=== PATIENT | female | born 1965 | race Caucasian/White ===

== ENCOUNTER 2024-04-13 15:06 | Inpatient (IN) | payer OTHER, SELFPAY ==
[2024-04-13] VITALS (13 sets, daily range): BP systolic 100–146; BP diastolic 62–95; BMI 26.6
--- NOTE | 2024-04-13 12:12 | ED.GENMED ---
History of Present Illness
General
Chief Complaint: Cardiac Symptoms
Source: patient
Time Seen by Provider: 04/13/24 12:09
History of Present Illness
History of Present Illness:
58-year-old female presents to the emergency room via ambulance due to feeling dizzy and like she might pass out. Patient was at work and had gone to the bathroom. While in the bathroom she can feel lightheaded, palpitation and dizzy and a
sensation like she was going to pass out. Patient endorses 'partying' over the weekend and thought she was dehydrated. She left the bathroom and coworkers noted that she did not look well. She again had a feeling that she might pass out. 911 was
called. Upon arrival medics state that the patient was in sinus tachycardia. They began to transport her to the hospital and during transport she was noted to develop a wide-complex tachycardic rhythm. They interpret this is ventricular
tachycardia. They did not have IV access. After a brief attempted Marisabel maneuvers the patient was synchronously cardioverted with 100 J. She reverted to sinus tachycardia. Patient states that she takes no medication. She endorses daily alcohol
use. She estimates that she drinks 3 seltzers a day. She drinks much more than this over the weekend. Last drink was about 9 PM last night. She endorses mild marijuana use but denies any other drug use. Patient did not have any chest pain per
se.
Phy Exam
Physical Exam
Physical Exam:
General: Awake, Alert, Oriented X3. Anxious but no acute distress.
Vitals: Mild tachycardia
Head: Atraumatic
Eyes: Pupils equal, EOMI
Throat: Airway intact, no exudates
Neck: Trachea midline
Lungs: Clear and equal b/l
Heart: Regular rate, no murmurs
Abd: Soft, Nontender, No pulsatile mass
Neuro: Nonfocal
Skin: Warm, dry, no rash
Extremities: pulses equal b/l, no edema
Course
Orders/Labs/Results
Orders:
Orders
04/13/24 12:00
Electrocardiogram (*1) Urgent
Reason for Study: Chest Pain
Cardiac Monitoring- Treatment ONCE
EKG- Treatment ONCE
IV Insert/Care/Rem.- Treatment PRN
O2 Therapy [RESP] Urgent
Titrate/Wean O2 to maintain O2 sat greater than (%): 90
Special Instructions: Maintain sats >/=90%
Pulse Ox/spot Check [RESP] Urgent
Quantity: 1
Special Instructions: ON ROOM AIR
04/13/24 12:09
Complete Blood Count/With Diff Urgent
Comprehensive Metabolic Panel Urgent
Magnesium Urgent
Phos [Phosphorus] Urgent
Prothrombin Time Urgent
Troponin I Urgent
04/13/24 12:10
Free T4 Urgent
TSH Reflex To Free T4 Urgent
04/13/24 12:16
0.9% Sodium Chloride 500 ml [Nss] 500 ml IV BOLUS
04/13/24 12:17
Thiamine Injection 200 mg IV NOW STA
04/13/24 12:24
Amiodarone [Cordarone] 150 mg Dextrose 5%/Water 100 ml [D5w] 100 ml IV NOW
04/13/24 12:25
Magnesium Sulfate 4 Gram/100Ml [Magnesium Sulfate] 4 gram in 100 ml IV NOW
04/13/24 12:31
Electrocardiogram (*1) Urgent
Reason for Study: Palpitations
EKG- Treatment ONCE
04/13/24 13:04
Add On- LAB Urgent
Tests Added?: ALCOHOL
04/13/24 13:10
Echo 2D MMode Color/Doppler Stat
Reason for Study: vt
04/13/24 14:18
Drug Screen, Urine [Urine Drug Abuse Screen] Urgent
Date Specimen was Collected: 04/13/24
Time Specimen was Collected: 13:35
04/13/24 14:20
Portable Chest Xray [CR Chest Portable - 1 View] Urgent
Comment:
Reason For Exam: cp
Reason Study Needs to be Portable: Patient Unstable
Abnormal Lab Results
04/13/24 04/13/24
12:09 12:10
MCH 31.2 H pg
(27.0-31.0)
Carbon Dioxide 21 L mmol/L
(22-30)
Glucose 128 H mg/dl
(70-99)
AST 58 H U/L
(14-36)
TSH (Reflex) < 0.02 L uIU/ml
(0.47-4.68)
04/13/24 12:09
04/13/24 12:09
Vital Signs
Initial and Last Documented VS:
Initial Vital Signs
BP
146/81
04/13/24 12:08
Last Documented Vital Signs
Temp Pulse Resp BP Pulse Ox
97.8 F 96 14 137/91 99
04/13/24 12:14 04/13/24 14:15 04/13/24 14:15 04/13/24 14:01 04/13/24 14:01
MDM/Problems Addressed
Differential Diagnosis Includes:
Ventricular tachycardia due to ischemia, electrolyte abnormality, cardiomyopathy.
MDM/Problems Addressed:
Patient had an episode of ventricular tachycardia which converted after synchronized cardioversion prehospital setting. She had multifocal PVCs on the monitor initially. She was given 4 g of magnesium given her alcohol use disorder and binging
this weekend. Also received a bolus of amiodarone 150 mg. Patient seems to have less ectopy after these interventions. Patient evaluated by cardiology. She will be admitted to the hospitalist service and cardiology perform an extensive workup to
identify the source of the dysrhythmia. However at this point they are recommending a ICD prior to discharge.
*Pulse Oximetry
Patient hypoxic: no
*EKG
Interpreted by ED Provider?: Yes
Interpretation: abnormal
Heart Rate: 110
Rate: tachycardiac
Rhythm: sinus and PVC's
[place]: normal axis
Interval: normal interval
QRS Pattern: normal QRS
Ischemia: non-specific ST changes
*Employment Interviewer Interpretation
Rate: tachycardiac
Interpretation: abnormal
Heart Rate: 110
Rhythm: sinus tachycardia
*Critical Care Note
Total Time (30-74mins, 75-104mins- exclusive of procedures): 32 min
comment:
Critical care statement: A total of 32 minutes of critical care time was provided for this patient. This includes management of unstable vital signs, evaluation of the patient at bedside, reviewing the patient's pertinent medical records, discussion
with consultants, review of old EKGs and review of pertinent medical records. This time with separate from time utilized to perform the aforementioned documented procedures
ED Attending Note
-
Portions of this chart may have been created with voice recognition software.� Occasional wrong word or��sound alike� substitutions may have occurred due to the inherent limitations of voice recognition software.
Discharge Plan
Departure
Patient Disposition: Admit
Date of Disposition: 04/13/24
Time of Disposition: 13:19
Admit to: IVU
Presentation/result/management discussed w/ accepting MD/DO: Hospitalist
Condition: Serious
Discharge Problem:
Ventricular tachycardia
Prescriptions:
No Action
Theragen Tablet
1 tab PO DAILY
aspirin 81 mg Tablet,Delayed Release (Dr/Ec)
81 mg PO DAILY
Interventions
Interventions:
*Risk Screen - Suicide Last Done: 04/13/24 12:16
*General Assessment Last Done: 04/13/24 12:16
*Neglect/Abuse Screening Last Done: 04/13/24 12:16
*ED COVID-19 Vaccine History Last Done: 04/13/24 12:16
ED- Pulmonary Assessment Last Done: 04/13/24 12:16
ED- Cardiac Assessment Last Done: 04/13/24 12:16
Discharge Date and Time
Print Language: EAST TIMOR[place]
[2024-04-13 12:29] LABS: % Basophils 0.6 % (0-2); % Immature Granulocytes 0.3 % (0-0.5); % Lymphocytes 26.9 % (20.5-51.1); % Monocytes 4.5 % (1.7-9.3); % Neutrophils 65.7 % (42.2-75.2); Absolute Eosinophils 0.1 10^3/uL (0-0.7); Absolute Lymphocytes 1.8 10^3/uL (1.2-3.4); Absolute Monocytes 0.3 10^3/uL (0.1-0.6); Absolute Neutrophils 4.5 10^3/uL (1.4-6.5); Hematocrit 44.4 % (37.0-47.0); Mean Corp Hgb Conc. 33.8 g/dL (33.0-37.0); Mean Corpuscular Hgb 31.2 pg (27.0-31.0); Mean Corpuscular Volume 92.3 fL (81.0-99.0); Mean Platelet Volume 10.4 fL (7.4-10.4); Nucleated Red Blood Cells % 0 %; Platelet Count 337 10^3/uL (130-400); Red Blood Cell Count 4.81 10^6/uL (4.20-5.40); Red Cell Dist. Width 12.2 % (11.5-14.5); White Blood Cell Count 6.8 10^3/uL (4.8-10.8)
[2024-04-13] MEDS: THIAMINE INJECTION 200 MG IV (12:37)
[2024-04-13] MEDS: NSS 500 IV (12:37)
[2024-04-13 12:43] LABS: ALT (SGPT) 32 U/L (0-35); AST (SGOT) 58 U/L (14-36); Albumin 4.7 g/dl (3.5-5.0); Alkaline Phosphatase 106 U/L (38-126); Blood Urea Nitrogen 14 mg/dl (7-17); Calcium 10.1 mg/dl (8.4-10.2); Carbon Dioxide 21 mmol/L (22-30); Chloride 103 mmol/L (98-107); Estimated Creatinine Clearance 67 ml/min; Glucose 128 mg/dl (70-99); Magnesium 1.8 mg/dl (1.6-2.3); Phosphorus 2.8 mg/dl (2.5-4.5); Potassium 4.3 mmol/L (3.5-5.1); Sodium 142 mmol/L (135-145); Total Bilirubin 0.7 mg/dl (0.2-1.3); Total Protein 7.2 g/dl (6.3-8.2); eGFR > 60.00
[2024-04-13] MEDS: MAGNESIUM SULFATE 100 IV (12:45)
[2024-04-13] MEDS: CORDARONE 103 MG IV (12:49)
[2024-04-13 12:53] LABS: INR 0.97; PT 12.9 Sec (11.4-14.6)
[2024-04-13 13:14] LABS: TSH Reflex To Free T4 < 0.02 uIU/ml (0.47-4.68)
--- NOTE | 2024-04-13 13:14 | CON.CAR ---
Consultation
Consultation Request
Date/Time Consultation Requested: 04/13/24 1230
Date/Time Consultation Performed: 04/13/2024 at 1255
Requesting Provider: Dr. Rosales
Performing Provider: Dr. Patsy Rees
Reason for Consultation: Ventricular tachycardia
Medical History
-
Chief Complaint: Dizziness
History of Present Illness:
Patient is a 58-year-old woman accompanied by her fianc� and sister. She tells me she was under stress at work and not feeling well and went into the bathroom and felt dizzy. She was going to have a bowel movement. When she came out she was
feeling poorly 911 was called. According to communication in the ambulance she started feeling poorly and was in rapid ventricular tachycardia heart rate around 250 bpm and she was cardioverted at that time. First EKG with sinus rhythm multiform
PVCs and inferior infarct age undetermined but appears old. Second EKG with sinus rhythm single PVC and inferior infarct age undetermined but appears.
Patient tells me she had mitral valve repair for mitral valve prolapse and mitral regurgitation about a year ago at [facility] with Dr. Wheeler. 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
well since open heart surgery. She tells me she has no history of arrhythmias. She does not think she has coronary disease. She is not sure if initial cardiac catheterization was at [facility], [facility] or [facility]
Amirah's.
She denies chest pain and syncope. She has not felt like this before. Currently she is anxious and nervous after everything that happened. She has been taking only a multivitamin and aspirin at home. She denies other medical issues
She drinks 5 alcoholic beverages daily but drink more this weekend. She has a history of tobacco use and that she went to vaping and now is using Nicorette gum.
CBC is stable. Potassium is stable. Magnesium is stable. Troponin is pending. Blood pressure is stable. Amiodarone drip has been ordered.
Past Medical History
Past Medical History: Arrhythmias (Ventricular tachycardia), Valvular Disease (History of mitral valve repair about a year ago at [facility]) and Other (Alcohol use disorder, history of tobacco use not using the correct)
Past Surgical History: Appendectomy, Cardiac (Mitral valve repair) and Orthopedic (Arthroscopic knee surgery)
Social History
Tobacco: Former Smoker
Alcohol: Chronic Alcoholic (5 alcoholic beverages daily)
Personal: Single
Employment: Employed
Family History
Family History: CAD (Father with heart failure and atrial fibrillation) and Other (Mother with dementia)
Allergies / Home Medications
Allergy/AdvReac Type Severity Reaction Status Date / Time
No Known Allergies Allergy Unverified 04/13/24 12:13
Review of Systems
-
History Source: Patient
All other systems: Negative unless noted
Cardiac: Palpitations and Other (Near syncope)
Physical Exam
Vital Signs
Temp Pulse Resp BP Pulse Ox
97.8 F 104 22 146/81 96
04/13/24 12:14 04/13/24 13:00 04/13/24 13:00 04/13/24 12:14 04/13/24 13:02
Lab Results
04/13/24 12:09
04/13/24 12:09
General: Well developed, well nourished in NAD.
Heart: Distant heart sounds defibrillator pads in place RRR, no murmurs, No S3, S4, no rubs.
Lungs: Coarse anterior breath sounds
Extremities: No clubbing, cyanosis or edema bilaterally.
Neuro: Grossly nonfocal, awake, alert and oriented x3.
Impression / Plan
-
Book Sorter Dr. Mckee ([place])
Cardiac surgeon Dr. Russell ([facility])
Impression:
Ventricular tachycardia/ventricular flutter status post shock by EMS
PVCs
Mitral valve repair [facility]
By report no coronary artery disease by catheterization (records not available)
Negative troponin x 1
Alcohol use disorder
Recent tobacco cessation using Nicorette gum
Abnormal EKG with Q waves inferiorly
Plan:
Patient was feeling dizzy and lightheaded with prior history of mitral valve repair approximately 1 year ago at [facility] no history of coronary artery disease by report. Patient in EMS had rapid ventricular tachycardia/ventricular
flutter at about 250 bpm and given hypotension and symptoms were shocked by EMS to sinus rhythm. EKG with multiform PVCs. No further arrhythmias. Received amiodarone. Receiving magnesium. Troponin negative. Electrolytes without abnormality.
Alcohol use disorder noted.
Plan at this time:
-Obtain records
-Echocardiogram
-Will likely need cardiac catheterization to exclude coronary artery disease atherosclerotic or mechanical
-Will need defibrillator this hospital stay
-Defer to primary service alcohol use disorder and tobacco use disorder
Have discussed with patient and her family at the bedside. At this time I explained to them that she had a dangerous rhythm and we were awaiting echocardiogram. Did not make plans yet with patient and her family for cardiac catheterization or
defibrillator. Await records first and echocardiogram results.
Data Reviewed
-
EKG: Tracing Personally Visualized and interpreted
Medical Tests (Nuc Med, Echo etc): Report Reviewed by me
Labs: Labs Reviewed by me
Old Records: Requested
[2024-04-13 13:26] LABS: Troponin I < 0.012 ng/ml
[2024-04-13 13:44] LABS: Free T4 1.62 ng/dl (0.78-2.19)
[2024-04-13 14:49] LABS: Amphetamines Negative (Negative); Barbiturates Negative (Negative); Benzodiazepines Negative (Negative); Buprenorphine Negative (Negative); Cocaine Negative (Negative); Marijuana Negative (Negative); Methadone Negative (Negative); Methamphetamines Negative (Negative); Opiates Negative (Negative); Phencyclidine Negative (Negative); Tricyclic Antidepressants Negative (Negative)
[2024-04-13] MEDS: ASPIRIN 325 MG PO (15:06)
[2024-04-13] MEDS: HEPARIN 25000 UNITS/250 ML IV (15:11)
[2024-04-13] MEDS: HEPARIN 3900 UNITS IV (15:18)
[2024-04-13 15:20] LABS: APTT 27.9 Sec (23.4-35.0)
[2024-04-13 15:39] LABS: Alcohol None Detected
--- NOTE | 2024-04-13 15:39 | W.PN.UPDATE ---
Update Note
Progress Note Update
records obtained and reviewed from primary operator command support systems, Dr. Mckee including last office visit 12/24/23, last echo 07/02/23 EF 55 to 60%, annuloplasty ring in mitral position with trace MR and mean gradient 2 mmHg
--- NOTE | 2024-04-13 15:57 | HPS.HSE ---
Addendum entered and electronically signed by Crispin Turcios MD 04/13/24 18:24:
I personally performed a history and physical exam of the patient and discussed management with the resident. I reviewed the resident's note and agree with the documented findings and plan of care HPI/CC.
58-year-old female with past medical history of surgical mitral repair, alcohol use came from work after having dizziness episode. Patient was in bathroom having bowel movement when started feeling dizzy. Patient was having some discomfort in the
left arm as well. No associated nausea/shortness of breath. Patient was concerned about worsening heart issue and called EMS. In ambulance patient noted to having episode of V. tach/V-fib with heart rate going up to 250. Patient did not lose
consciousness and patient was shocked x1 with patient reverted to NSR. Patient somewhat traumatized with this whole ordeal and quite anxious. Patient was evaluated by cardiology and was started on amiodarone drip. An echocardiogram was done which
showed possible inferior wall motion defect. On EKG there is corresponding Q wave on inferior leads as well. Patient was loaded with full dose aspirin and started on heparin drip. At this point patient is being transferred to [employer] [facility] for an
emergent ischemic evaluation. Patient denies of any active ongoing chest pain/shortness of breath/nausea.
HEENT: No pallor, cyanosis, or jaundice. Throat clear.
NECK: Supple. No JVD.
RESPIRATORY: Lungs clear to auscultation.
CVS: S1, S2 normal. RRR. No murmur, rub or gallop.
ABDOMEN: Soft, non-tender. No distension. BS+/normal.
EXTREMITIES: No peripheral cyanosis or edema.
L[employer] WORKER HELPER: AOx3. No focal deficits.
Episode of VT/Vfib
Presumed NSTEMI
-got x1 defibrillator shock by EMS
-Patient started on amiodarone drip
-No previous history of obstructive CAD/ventricular arrhythmia
-Electrolyte magnesium/potassium within normal limit. Patient was given empiric Mag 4g infusion.
-Emergent echocardiogram in ER showing inferior wall motion defect. Preserved EF no problem with mitral valve repair
-Patient being loaded with aspirin 325 mg and being started on heparin drip
-Cardio logic planning to take patient to heart cath immediately
-Patient will require eventual EP study and/ICD placement
Mitral valve repair
-No abnormality on echocardiogram
-Further records being requested from primary cardiology
DVT PPX - heparin drip
Full code
Total time spent : 77 mins
I personally saw and examined the patient.
I have reviewed all diagnostic interpretations and treatment plans as written.
Time includes patient management by me, time spent at the patients bedside, time to review lab and imaging results, discussing patient care, documentation in the medical record, and time spent with the family or caregiver and discussing care plan
with RN/Consultants.
Full code
Original Note:
Family Physician
-
Family Physician: Virginia Villanueva
Chief Complaint
-
Ventricular tachycardia
History of Present Illness
58-year-old female with past medical history of mitral valve repair, presents from work. Patient states that she was having a bowel movement at work during which she begun to feel funny, she began sweating, feeling lightheadedness and dizzy. She
also endorses that her arm felt 'weird' and he cannot elaborate further. Patient denies nausea vomiting chest pain shortness of breath. Patient does endorse that this episode was scary. The symptoms persisted for approximately 30 minutes.
Patient was picked up at work by EMS. During route to the hospital it was noted the patient had a bout of ventricular tachycardia on rhythm strip, around 250 bpm. Patient blood pressure dropped into the 90s, she was awake and speaking. EMS then
defibrillated the patient while awake. Patient states that this is never happened before and she is currently very anxious and afraid. The only medication patient takes at home is a multivitamin and aspirin. She denies all other medical issues.
Patient is an alcoholic, she drinks approximately 5 alcoholic beverages per day however when she did drink more this weekend. Cardiology was consulted in the ED, gave recommendations and is planning to take patient for a cardiac catheterization
later today. Patient will be admitted to the IVU for further telemetry and workup.
Medical History
Past Medical History
Past Medical History: Reports Valvular Disease (History of mitral valve repair)
Past Surgical History: Reports Other
Additional Past Surgical History:
Appendectomy, mitral valve repair, left knee replacement
Social History
Tobacco: Former Smoker (Quit about 10 years ago, approximately 74-[id number] history.)
Alcohol: Daily (Patient drinks approximately 5 drinks per day, drink more this weekend)
Drug: Marijuana (Patient reports occasional marijuana use)
Personal:
Living: With Family
Employment: Employed
Family History
Family History: Not pertinent
Allergies / Home Medications
Allergies reflects when Allergies were last updated in [employer].
Home Medications with original date entered in [employer]
Allergy/Medication List:
Allergies
Allergy/AdvReac Type Severity Reaction Status Date / Time
No Known Allergies Allergy Unverified 04/13/24 12:13
Home Medications
aspirin 81 mg tablet,delayed release 81 mg PO DAILY 04/13/24
therapeutic multivitamin 1 tab PO DAILY 04/13/24
Review of Systems
-
A 12 point ROS was completed and negative except as noted: Yes
Constitutional: Reports No Symptoms
EENT: Reports No Symptoms
Respiratory: Reports No Symptoms; Denies Trouble Breathing
Cardiac: Reports Diaphoresis; Denies Chest Pain
Abdomen/GI: Denies Nausea
: Reports No Symptoms
Musculoskeletal: Reports No Symptoms
Neurological: Reports Dizzy (Dizziness and lightheadedness) and Other (Patient reports left arm feeling 'weird ')
Physical Exam
Vital Signs
Vital Signs
Temp Pulse Resp BP Pulse Ox
97.8 F 92 17 133/95 98
04/13/24 12:14 04/13/24 15:45 04/13/24 15:45 04/13/24 15:00 04/13/24 15:45
Physical Exam
General: Well Developed and Conversant
Respiratory: Clear
Cardiac: S1/S2 and Regular Rhythm
GI: Soft, Non Tender, Non Distended and Normal Bowel Sounds
Musculoskeletal: No Edema
Skin: Warm and Dry
Neuro: Awake, Alert, Oriented and AO x 3
Psych: Intact Judgment/Insight
Laboratory Results
-
04/13/24 12:09
04/13/24 12:09
Laboratory Results
PT 12.9 Sec (11.4-14.6) 04/13/24 12:09
INR 0.97 04/13/24 12:09
APTT 27.9 Sec (23.4-35.0) 04/13/24 12:09
Total Bilirubin 0.7 mg/dl (0.2-1.3) 04/13/24 12:09
AST 58 U/L (14-36) H 04/13/24 12:09
ALT 32 U/L (0-35) 04/13/24 12:09
Alkaline Phosphatase 106 U/L (38-126) 04/13/24 12:09
Troponin I < 0.012 ng/ml 04/13/24 12:09
Data Reviewed
-
Diagnostic Radiology: Report Reviewed by me and Discussed with Physician
Lab Data: Labs Reviewed by me and Discussed with Physician
Impression/Plan
-
IMPRESSION:
58-year-old female with a bout of ventricular tachycardia requiring defibrillation
PLAN:
#Presyncope
Etiology of presyncope currently unknown, it is presumed cardiac in nature
Cardiology saw and evaluated the patient in the emergency department,
EKG in emergency department demonstrates sinus rhythm with possible small Q waves in the inferior leads
Status post echocardiogram
Echocardiogram demonstrated inferior wall motion abnormality
Planning cardiac catheterization later tonight
Patient started on loading dose of heparin, as well as drip
325 mg aspirin given in the ED
Check electrolytes, magnesium and potassium in the morning
Trend troponins every 4 hours
Admit to IVU and place on telemetry
#Ventricular tachycardia
Patient had 1 recorded episode of ventricular tachycardia by EMS, 250 bpm, systolics in the 90s
Patient required defibrillation in ambulance en route to the emergency department
Patient currently wearing a transcutaneous pacer device
Will admit and monitor on telemetry in the IVU
Check electrolytes in the a.m.
Monitor with daily CMP
#Alcohol use disorder
Patient reports drinking 5 drinks per day, more this weekend
Patient will be placed on alcohol withdrawal protocol
IV thiamine and folate repletion
Check magnesium and phosphorus
#Mitral valve repair
Patient has a history of mitral valve repair at [place]
Check echocardiogram
Diet: N.p.o.
CODE STATUS: Full code
DVT prophylaxis: Heparin drip
--- NOTE | 2024-04-13 16:24 | ITS.CL.CATH ---
Addendum entered and electronically signed by Jeniffer Cali MD 04/14/24 09:20:
ADDENDUM:
CIRCUMFLEX: The left circumflex artery is a small to medium caliber vessel which gives rise to 2 very small OM's and a third major obtuse marginal branch. 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
occlusion with robust right to left collaterals however the vessel is too small in caliber and not a PCI target.
Jeniffer Cali MD, [facility], [facility]
Original Note:
Trench Pipe Layer Helper - Catheterization
Cardiac Catheterization
Procedure Report:
LEFT HEART CATHETERIZATION
Date of Procedure: April 13, 2024
Referring: Patsy Rees
PROCEDURES:
1. Left heart catheterization, coronary angiogram.
2. Ultrasound-guided access
INDICATION: Ventricular tachycardia
ACCESS: Right radial artery, 6 Palestinian sheath, under ultrasound guidance
HEMODYNAMICS : (mmHg)
AO (s/d) : 137/92
LV (s/d) : 130/6
LVEDP : 11
CORONARY FINDINGS
DOMINANCE: Right
LEFT MAIN: The left main artery is a large-caliber vessel which gives rise to the left anterior descending artery and the left circumflex artery. Normal coronary artery.
LEFT ANTERIOR DESCENDING: The left anterior descending artery is a medium caliber vessel which gives rise to 2 major diagonal branches as it courses to the anterior interventricular groove towards the apex. There is minimal luminal irregularities.
CIRCUMFLEX: The left circumflex artery is a small to medium caliber vessel which gives rise to 2 very small OM's and a third major obtuse marginal branch. Mid left circumflex artery, which is small in caliber, appears to have a sub-total occlusion
with robust right to left collaterals however the vessel is too small in caliber and not a PCI target.
RIGHT CORONARY ARTERY: The right coronary artery is a large-caliber, dominant vessel which gives rise to the right posterior descending artery and the right posterolateral system. There is minimal luminal irregularities. Collaterals are noted to
the [place] left circumflex artery.
SEDATION: 23 minutes of procedural sedation was utilized. An independent medical terminologist was present to assist with and help manage the patient's level of consciousness and physiologic status.
RADIATION SUMMARY: Fluoro Time (min): 1.9, Dose (mGy): 127.9, DAP (Gy.cm2) : 11.55
Closure Device: Vascular band over right radial artery, 10 cc of air.
CONCLUSIONS
1. Mid left circumflex artery, which is small in caliber, appears to have a sub-total occlusion with robust right to left collaterals however the vessel is too small in caliber and not a PCI target.
2. Normal LVEDP at 11 mmHg.
RECOMMENDATIONS
1. Medical management of ischemic cardiomyopathy and ventricular tachycardia.
2. Wean radial band per protocol.
Copy to: Patsy Rees
Jeniffer Cali MD, FACC, [facility]
--- NOTE | 2024-04-13 17:41 | PTCARENOTE ---
Rec'd report from Federico in the production laborer; Rec'd pt AAOx3 w/no c/o CP or SOB. Pt w/R radial band in place w/no signs or symptoms of bleeding or hematoma. Pt's VS stable w/HR in the 80's & SR on telemetry monitoring. Discussed activity restrictions post
cath & pt verbalized understanding. Pt w/call suh within reach & plan of care ongoing.
--- NOTE | 2024-04-13 20:00 | PTCARENOTE ---
Removed 3ml through TR band, cath site began to ooze, 3ml reintroduced to band. pox 98% on RA. +cms. Pt denies numbness. Ed -CV-PA notified.
2144 TR band removed by PA. Pressure applied.
[2024-04-13] MEDS: COREG 3.125 MG PO (20:09)
[2024-04-13] MEDS: LIPITOR 40 MG PO (20:10)
--- NOTE | 2024-04-13 23:30 | W.PN.UPDATE ---
Update Note
Progress Note Update
Cardiology Update Note:
-Called by nurse to assess pt's right radial artery site following cardiac Cath
-TR band applied with patient c/o paresthesia of right hand
-Removed TR band and applied manual pressure x 30 minutes without achievement of hemostasis, pt noted to be oozing
-TR band reinflated over gauze for additional 30 min before achievement of hemostasis
-Pressure dressing applied and can be removed in the AM
[2024-04-13 23:55] LABS: GGTP 25 U/L (12-43)
[2024-04-14] VITALS (7 sets, daily range): BP systolic 91–118; BP diastolic 61–84
[2024-04-14 02:30] LABS: B-Hydroxybutyrate 0.97 mmol/L (0.02-0.27)
--- NOTE | 2024-04-14 05:38 | PTCARENOTE ---
R radial pressure dressing removed as directed by PA. Cath site c/d/i, no oozing. gauz and tegaderm applied. no issues.
[2024-04-14 06:19] LABS: HDL Cholesterol 109 mg/dl; LDL Cholesterol, Calculated 94 mg/dl; Total Cholesterol 216 mg/dl (50-199); Triglyceride 66 mg/dl (10-149); Very Low Density Lipoprotein 13 mg/dl (0-30)
[2024-04-14] MEDS: ASPIR LOW (ENTERIC COATED) 81 MG PO (08:16)
[2024-04-14] MEDS: FOLVITE 1 MG PO (08:17)
[2024-04-14] MEDS: COREG 3.125 MG PO ×2 (08:17→20:02)
--- NOTE | 2024-04-14 09:03 | W.PN.HOSP.TC ---
Addendum entered and electronically signed by Crispin Turcios MD 04/14/24 14:59:
I saw and evaluated the patient. I reviewed the resident�s note and agree with findings and plan as documented in the resident�s note.
Patient had some bleeding issue from right radial catheter access site. No pain/discomfort on exam no swelling.
Episode of VT/Vfib
-got x1 defibrillator shock by EMS
-Patient started on amiodarone drip
-No previous history of obstructive CAD/ventricular arrhythmia
-Electrolyte magnesium/potassium within normal limit. Patient was given empiric Mag 4g infusion.
-Patient will get ICU placement for persistent
Ischemic cardiomyopathy
Circumflex artery occlusion
-Emergent echocardiogram in ER showing inferior wall motion defect. Preserved EF no problem with mitral valve repair
-Left heart catheterization showing subtotal occlusion of circumflex artery. Not amenable to stenting.
-Intervention cardiology recommended medical management.
-Currently on aspirin/statin/Coreg. Cardio will look into SGLT2 inhibitor affordability.
Mitral valve repair
-No abnormality on echocardiogram
-Further records being requested from primary cardiology
DVT PPX - heparin drip
Full code
Care plan discussed with interventional cardiology
Total time spent : 53 mins
I personally saw and examined the patient.
I have reviewed all diagnostic interpretations and treatment plans as written.
Time includes patient management by me, time spent at the patients bedside, time to review lab and imaging results, discussing patient care, documentation in the medical record, and time spent with the family or caregiver and discussing care plan
with RN/Consultants.
Original Note:
Today's Communication/Plan
-
Tentatively planning for defibrillator implantation
Make patient n.p.o. once defibrillator implantation time has been set
Assessment / Plan
Assessment / Plan
IMPRESSION:
58-year-old female with a bout of ventricular tachycardia requiring defibrillation
PLAN:
#Presyncope
Etiology of presyncope currently unknown, it is presumed cardiac in nature
Cardiology saw and evaluated the patient in the emergency department,
EKG in emergency department demonstrates sinus rhythm with possible small Q waves in the inferior leads
Status post echocardiogram
Echocardiogram demonstrated inferior wall motion abnormality
Status post cardiac catheterization, no PCI target was found
Continue patient on heparin drip
Continue aspirin 81 mg
Cardiology planning to take patient for implantable cardiac defibrillator
Will make patient n.p.o. once definitive time has been set
IVU and telemetry
#Ventricular tachycardia
Patient had 1 recorded episode of ventricular tachycardia by EMS, 250 bpm, systolics in the 90s
Patient required defibrillation in ambulance en route to the emergency department
Patient currently wearing a transcutaneous pacer device
Continue to monitor on telemetry in the IVU
Monitor with daily CMP
#Alcohol use disorder
Patient reports drinking 5 drinks per day, more this weekend
Patient will be placed on alcohol withdrawal protocol
IV thiamine and folate repletion
Check magnesium and phosphorus
#Mitral valve repair
Patient has a history of mitral valve repair at [facility]
Check echocardiogram
Diet: Cholesterol-lowering
CODE STATUS: Full code
DVT prophylaxis: Heparin drip
Anticipated Discharge: Within 24 hours
Subjective/Interval History
-
Date of Service: April 14, 2024
Patient had an episode of paresthesias and ooziness of her right radial artery catheter site. This was resolved after 30 minutes of pressure
Site looks well today, skin warm no signs of compression.
Objective Data
-
Labs:
Laboratory Results
04/13/24 04/14/24
14:41 16:22
WBC Pending
Hgb Pending
Hct Pending
Plt Count Pending
APTT Cancelled
Sodium Pending
Potassium Pending
Chloride Pending
Carbon Dioxide Pending
BUN Pending
Creatinine Pending
Glucose Pending
Calcium Pending
Total Bilirubin Pending
AST Pending
ALT Pending
Alkaline Phosphatase Pending
Vital Signs:
Vital Signs
Temp Pulse Resp BP Pulse Ox
98.4 F 70 20 94/61 98
04/14/24 08:11 04/14/24 08:17 04/14/24 08:11 04/14/24 08:17 04/14/24 08:11
Review of Systems
-
History Source: Patient
Constitutional: Reports No Symptoms
Respiratory: Reports No Symptoms
Cardiac: Reports No Symptoms
Abdomen/GI: Reports No Symptoms
Physical Exam
-
General: Well Developed, Well Nourished and No Apparent Distress
--- NOTE | 2024-04-14 10:44 | W.PN.CARDCBS ---
Addendum entered and electronically signed by Jeniffer Cali MD 04/14/24 11:25:
I saw and examined the patient.
The Pipe Bending Machine Operator's note was reviewed and I agree with the note.
Comment: Overall patient did well overnight and does not report any major complaints. In the evening time as they were weaning of the radial band she had persistent bruising requiring prolonged pressure at the radial site and reapplication of the
vascular band which eventually helped achieve hemostasis. She has no complaints at the radial site this morning other than it being mildly sore.
.
Vital signs and lab work reviewed. Telemetry with frequent PVCs and multifocal ventricular ectopic beats. On exam patient is somewhat anxious, otherwise in no acute distress, alert and oriented x 3, regular rate, normal S1 and S2, no murmurs, rubs
or gallops, lungs are clear to auscultation bilaterally, abdomen is soft, nontender, nondistended with active bowel sounds, warm extremities without significant edema. On exam at the radial side there is no evidence of hematoma or bruit.
.
Recommendations:
1. Continue with goal-directed medical therapy optimization for ischemic cardiomyopathy. We will look into the cost for SGLT2 inhibitor otherwise she will continue on daily baby aspirin, statin and carvedilol.
2. Continue to monitor radial site and if she has persistent pain at the right radial site or any worsening, low threshold to check a vascular ultrasound to rule out any concerns for a pseudoaneurysm.
3. N.p.o. after midnight for ICD placement tomorrow for secondary prevention.
Discussed with patient and family at bedside. Also discussed with nursing.
Jeniffer Cali MD, [facility], [facility]
Original Note:
Today's Communication / Plan
-
continue asa, statin, coreg. will assess cost to patient of SGLT2 inhibitor
ICD in AM
follow radial site
Impression / Plan
-
Pumper Hand Dr. Mckee ([place])
Cardiac surgeon Dr. Russell ([facility])
Impression:
Ventricular tachycardia/ventricular flutter status with hypotension status post shock by EMS
Negative trop x1
Subtotal occlusion of small caliber circ by cath 04/13/24, medical mgmt
Ischemic Cardiomyopathy, EF 40% by echo 04/13/24
PVCs
Mitral valve repair [facility] 2022
Alcohol use disorder
Recent tobacco cessation using Nicorette gum
Abnormal EKG with Q waves inferiorly
Echo 07/02/23 at OSH: EF 55 to 60%, annuloplasty ring in mitral position with trace MR and mean gradient 2 mmHg
ECHO 04/13/24: EF 40%, basal inferior, basal inferoseptum, high lateral, inferolateral mid and basal lee are hypokinetic, status post mitral valve repair with peak/mean gradient 7/4 mmHg, trace MR, no AR, trace TR, PAP 20 to 25 mmHg
Plan:
-patient presented with lightheadedness, noted to be in VT/VF with hypotension and was shocked by EMS in field
-s/p cardiac cath 04/13 with subtotal occlusion of small caliber circ. plan for medical mgmt
-presumably arrhythmia scar based
-continue asa, coreg, statin
-noted to have oozing from radial site post TR band removal last night. improved with pressure and additional TR band time. good pulse on exam. will follow. if worsening pain or recurrent pain, will check US
-echo with EF 40%, new upon comparing prior echo report from OSH
-discussed with patient and family indication for ICD. plan for implant 04/15. NPO after midnight
-remains in SR with PVCs, 1 3-beat run NSVT on review of tele overnight
-not presently candidate for tricia/arb/arni/aldactone given hypotension. will have CM assess cost to patient of SGLT2 inhibitor.
-discussed etoh/tobacco cessation
-d/w nursing
PREADMIT DATA:
Patient was feeling dizzy and lightheaded with prior history of mitral valve repair approximately 1 year ago at [facility] no history of coronary artery disease by report. Patient in EMS had rapid ventricular tachycardia/ventricular
flutter at about 250 bpm and given hypotension and symptoms were shocked by EMS to sinus rhythm. EKG with multiform PVCs. No further arrhythmias. Received amiodarone. Receiving magnesium. Troponin negative. Electrolytes without abnormality.
Alcohol use disorder noted.
Progress Note - Pumper Hand
Subjective
Date of Service: April 14, 2024
denies CP, SOB, lightheadedness overnight. R radial site with soreness to palpation, oksana-incisional ecchymoses, good radial pulse.
Objective
Labs:
Labs
Hgb 15.0 g/dL (12.0-16.0) 04/13/24 12:09
Hct 44.4 % (37.0-47.0) 04/13/24 12:09
Plt Count 337 10^3/uL (130-400) 04/13/24 12:09
PT 12.9 Sec (11.4-14.6) 04/13/24 12:09
INR 0.97 04/13/24 12:09
APTT Cancelled 04/13/24 21:11
Sodium 142 mmol/L (135-145) 04/13/24 12:09
Potassium 4.3 mmol/L (3.5-5.1) 04/13/24 12:09
BUN 14 mg/dl (7-17) 04/13/24 12:09
Creatinine 0.8 mg/dL (0.6-1.0) 04/13/24 12:09
Glucose 128 mg/dl (70-99) H 04/13/24 12:09
Troponins
04/13/24 04/13/24 04/13/24
12:09 17:11 18:30
Troponin I < 0.012 Cancelled Cancelled
04/13/24 04/14/24 04/14/24
21:11 00:30 06:30
Troponin I Cancelled Cancelled Cancelled
04/14/24
12:30
Troponin I Cancelled
Vital Signs and I&O:
Vital Signs
Temp Pulse Resp BP Pulse Ox
98.4 F 74 20 94/61 98
04/14/24 08:11 04/14/24 10:30 04/14/24 08:11 04/14/24 08:17 04/14/24 08:11
Vital Signs
Temp Pulse Resp BP Pulse Ox
98.4 F 74 20 94/61 98
04/14/24 08:11 04/14/24 10:30 04/14/24 08:11 04/14/24 08:17 04/14/24 08:11
Physical Exam
Physical Exam
GEN: No distress, awake, alert, oriented x3
HEENT: supple, anicteric, mmm, eomi
LUNGS: CTA B/L, no wheezes/rales
CV: Reg, S1/S2, no murmur
ABD: soft, BS+, NT/ND
EXT: No cyanosis, clubbing, edema
NEURO: Gross non-focal
SKIN: Warm, pink, dry. No rash. R wrist site with tenderness to palpation, some oksana-incisional ecchymoses, good pulse
[2024-04-14 11:32] LABS: Glycohemoglobin (HgbA1c) 5.1 % (4.0-5.6)
--- NOTE | 2024-04-14 14:05 | CM ---
Chart reviewed. Patient is independent of ADLS, lives with her fiance and son in a 3 S[place], 14 LYDIA, 0 DME. Patients family at bedside, so I was unable to offer substance abuse counseling. I will follow up. Plan is for the patient to return home.
CM to follow
--- NOTE | 2024-04-14 16:49 | PTCARENOTE ---
lab work sent. Pt denies pain, denies sob. voiding without difficulty. NSR on monitor.
[2024-04-14 16:54] LABS: Hematocrit 43.6 % (37.0-47.0); Hemoglobin 14.8 g/dL (12.0-16.0); Mean Corp Hgb Conc. 33.9 g/dL (33.0-37.0); Mean Corpuscular Hgb 31.8 pg (27.0-31.0); Mean Corpuscular Volume 93.8 fL (81.0-99.0); Mean Platelet Volume 10.2 fL (7.4-10.4); Platelet Count 325 10^3/uL (130-400); Red Blood Cell Count 4.65 10^6/uL (4.20-5.40); Red Cell Dist. Width 12.4 % (11.5-14.5); White Blood Cell Count 7.3 10^3/uL (4.8-10.8)
[2024-04-14 17:13] LABS: ALT (SGPT) 28 U/L (0-35); AST (SGOT) 39 U/L (14-36); Albumin 4.5 g/dl (3.5-5.0); Alkaline Phosphatase 79 U/L (38-126); Blood Urea Nitrogen 18 mg/dl (7-17); Calcium 10.2 mg/dl (8.4-10.2); Carbon Dioxide 27 mmol/L (22-30); Estimated Creatinine Clearance 59 ml/min; Glucose 91 mg/dl (70-99); Total Bilirubin 0.5 mg/dl (0.2-1.3); Total Protein 7.1 g/dl (6.3-8.2); eGFR > 60.00
[2024-04-14 17:29] LABS: Chloride 102 mmol/L (98-107); Potassium 4.8 mmol/L (3.5-5.1); Sodium 141 mmol/L (135-145)
[2024-04-14] MEDS: LIPITOR 40 MG PO (18:10)
[2024-04-15] VITALS (8 sets, daily range): BP systolic 88–113; BP diastolic 57–83
--- NOTE | 2024-04-15 04:34 | PTCARENOTE ---
Pt NPO for ICD placement. CHG performed. NSR on monitor, VSS. Pt denies any pain or discomfort.
--- NOTE | 2024-04-15 08:40 | W.PN.HOSP.TC ---
Addendum entered and electronically signed by Crispin Turcios MD 04/15/24 16:21:
Alcohol abuse without dependance
Addendum entered and electronically signed by Crispin Turcios MD 04/15/24 16:18:
I saw and evaluated the patient. I reviewed the resident�s note and agree with findings and plan as documented in the resident�s note.
Episode of VT/Vfib
-got x1 defibrillator shock by EMS
-Patient started on amiodarone drip
-No previous history of obstructive CAD/ventricular arrhythmia
-Electrolyte magnesium/potassium within normal limit. Patient was given empiric Mag 4g infusion.
-Getting ICD placement today
Ischemic cardiomyopathy
Circumflex artery occlusion
-Emergent echocardiogram in ER showing inferior wall motion defect. Preserved EF no problem with mitral valve repair
-Left heart catheterization showing subtotal occlusion of circumflex artery. Not amenable to stenting.
-Intervention cardiology recommended medical management.
-Currently on aspirin/statin/Coreg. Cardio will look into SGLT2 inhibitor affordability.
Mitral valve repair
-No abnormality on echocardiogram
-Further records being requested from primary cardiology
Alcohol use disorder
-MSAS remains 0
-no Ativan needed, discontinuing further
DVT PPX - scd
Full code
Original Note:
Today's Communication/Plan
-
Implantable cardiac defibrillator placement, keep patient n.p.o. until procedure
Assessment / Plan
Assessment / Plan
IMPRESSION:
58-year-old female with a bout of ventricular tachycardia requiring defibrillation
PLAN:
#Presyncope
#Ischemic cardiomyopathy
Etiology of presyncope unknown, it is presumed secondary to ischemic cardiomyopathy
Patient has history of mitral valve repair at [facility] 2022
Cardiology saw and evaluated the patient in the emergency department,
EKG in emergency department demonstrates sinus rhythm with possible small Q waves in the inferior leads
Status post echocardiogram demonstrating EF 40%
Echocardiogram demonstrated inferior wall motion abnormality
Status post cardiac catheterization, no PCI target was found
Continue patient on heparin drip
Continue GDMT with aspirin 81, statin, Coreg-cardio looking into SGLT2 inhibitor affordability
Cardiology planning to take patient for implantable cardiac defibrillator placement today
Patient was n.p.o. after midnight this morning
IVU and monitor on telemetry
#Ventricular tachycardia
Patient had 1 recorded episode of ventricular tachycardia by EMS, 250 bpm, systolics in the 90s
Patient required defibrillation in ambulance en route to the emergency department
Planning implantable cardiac defibrillator placement today
Continue to monitor on telemetry in the IVU
Monitor with daily CMP
#Alcohol abuse with or without dependence
No alcohol withdrawal symptoms, will continue patient on MSAS protocol
Patient reports drinking 5 drinks per day, more this weekend
Patient will be placed on alcohol withdrawal protocol
IV thiamine and folate repletion
Check magnesium and phosphorus
#Mitral valve repair
Patient has a history of mitral valve repair at [place]
Echocardiogram demonstrated EF 40%
Diet: Cholesterol-lowering
CODE STATUS: Full code
DVT prophylaxis: Heparin drip
Anticipated Discharge: Within 24 hours
Subjective/Interval History
-
Date of Service: April 15, 2024
No acute events overnight
Objective Data
-
Labs:
Laboratory Results
04/15/24
16:22
WBC Pending
Hgb Pending
Hct Pending
Plt Count Pending
Sodium Pending
Potassium Pending
Chloride Pending
Carbon Dioxide Pending
BUN Pending
Creatinine Pending
Glucose Pending
Calcium Pending
Total Bilirubin Pending
AST Pending
ALT Pending
Alkaline Phosphatase Pending
Vital Signs:
Vital Signs
Temp Pulse Resp BP Pulse Ox
98.5 F 75 20 113/83 96
04/15/24 07:05 04/15/24 04:04 04/15/24 07:05 04/15/24 03:38 04/15/24 07:05
I&O
04/14/24 04/15/24 04/16/24
06:59 06:59 06:59
Intake Total 1640 / 1640
Balance 1640 / 1640
Review of Systems
-
History Source: Patient
Respiratory: Reports No Symptoms
Cardiac: Reports No Symptoms
Abdomen/GI: Reports No Symptoms
Physical Exam
-
General: Well Developed, Well Nourished, No Apparent Distress and Comfortable
Respiratory: Clear to Auscultation
Cardiac: Regular Rhythm and S1/S2
GI: Soft, Nontender, Nondistended and Normal Bowel Sounds
Skin: Warm and Dry
Neuro: Awake, Alert, Oriented and AO x 3
Psych: Calm and Intact Judgement/Insight
Data Reviewed
-
Labs: Labs Reviewed by me and Discussed with Physician
[2024-04-15] MEDS: COREG 3.125 MG PO ×2 (09:02→21:01)
[2024-04-15] MEDS: ASPIR LOW (ENTERIC COATED) 81 MG PO (09:02)
[2024-04-15] MEDS: FOLVITE 1 MG PO (09:04)
[2024-04-15 09:46] LABS: Hematocrit 44.6 % (37.0-47.0); Mean Corp Hgb Conc. 33.6 g/dL (33.0-37.0); Mean Corpuscular Hgb 31.3 pg (27.0-31.0); Mean Corpuscular Volume 93.1 fL (81.0-99.0); Mean Platelet Volume 10.1 fL (7.4-10.4); Platelet Count 313 10^3/uL (130-400); Red Blood Cell Count 4.79 10^6/uL (4.20-5.40); Red Cell Dist. Width 12.1 % (11.5-14.5); White Blood Cell Count 7.2 10^3/uL (4.8-10.8)
[2024-04-15 10:00] LABS: Blood Urea Nitrogen 14 mg/dl (7-17); Calcium 10.1 mg/dl (8.4-10.2); Carbon Dioxide 25 mmol/L (22-30); Chloride 105 mmol/L (98-107); Estimated Creatinine Clearance 76 ml/min; Glucose 94 mg/dl (70-99); Potassium 4.7 mmol/L (3.5-5.1); Sodium 141 mmol/L (135-145); eGFR > 60.00
--- NOTE | 2024-04-15 10:02 | PN.CDI ---
CDI
- -
CDI:
Physician Documentation Request
Admit Date: 04/13/24 15:06
Dear Doctor Yevgeniy,
Patient admitted for ventricular tachycardia,
ER Physician Documentation: 'She endorses daily alcohol use. She estimates that she drinks 3 seltzers a day. She drinks much more than this over the weekend.'
H&P: 'Patient is an alcoholic, she drinks approximately 5 alcoholic beverages per day however when she did drink more this weekend.'
If possible, please provide further specificity as outlined below:
- Alcohol use, with or without abuse and/or dependence
- Alcohol abuse with or without dependence
- Alcohol dependence
Use of terms such as suspected, likely, concern for, or probable (associated with a specific diagnosis that is being evaluated, monitored, or treated as if it exists) are acceptable and can be coded in the inpatient setting, when documented at the
time of discharge.
Thank you,
Rocio Pham RN, BSN
CDI Specialist
Available via [place] text
Please use your independent medical judgment in providing your response.
--- NOTE | 2024-04-15 10:12 | W.PN.UPDATE ---
Update Note
Progress Note Update
Patient noted to have hemodynamically intolerable VT at approximately 250 bpm associated with near syncope at her place of work and she was cardioverted in the field. She had cardiac catheterization results as noted with prior mitral valve repair
surgery. She has myocardial scar. As such she qualifies and should be offered a secondary prevention ICD implant. She has normal sinus node function.
Discussed single-chamber ICD implant via the left and a 1000 risk of as well as a 1% risk of pneumothorax tamponade infection or bleeding. The patient signed informed consent is went to proceed today. She is in the n.p.o. state.
--- NOTE | 2024-04-15 11:43 | CM ---
Chart reviewed. Patient is independent of ADLS, lives with her fiance and son in a 3 STH, 14 LYDIA, 0 DME. Patient denying need for substance abuse counseling. Plan is for the patient to return home. CM to follow
--- NOTE | 2024-04-15 14:18 | W.ICD.CONTRA ---
Post ICD/SECOND SHIFT SUPERVISOR-D
-
History of LA?: No
LV Function
Left ventricular function study result?: Ejection Fraction >/= 40%
ACEI/ARB/ARNI
Patient already on ACEI/ARB/ARNI: No
ACEI/ARB/ARNI Not Indicated: Left Ventricular EF >/= 40%
Beta-Anthony
Patient already on Beta Anthony: Yes
--- NOTE | 2024-04-15 15:52 | ITS.CL.ICD ---
Addendum entered and electronically signed by Derek Brennan MD 04/15/24 16:01:
Fluoroscopy 2.4 minutes and 2.72 mGy
Original Note:
Information Tech - ICD
Implantable Cardioverter Defibrillator
Procedure Report:
Date of Procedure: 04/15/2024
Patient : 1965
Procedures: Single-chamber ICD implantation
Indication: Secondary prevention ICD sustained VT at 250 bpm. Last year had a mitral valve repair and a cath yesterday a subtotal circumflex occlusion which was new compared to presurgery.
�
Implants:
Pulse Generator: Presentigo; Model# DV PA 2 D4; Serial#�[id number]
Right Ventricular Lead: Medtronic; Model# 6935-55 cm; Serial# [id number]
�
Technique: The patient was prepped and draped in the usual fashion. Local anesthetic was applied to the left prepectoral subcutaneous tissue. A 4 inch incision was made. The left axillary vein was accessed��without difficulty. A subcutaneous pocket
was CREATED. Hemostasis was excellent. The right ventricular lead was placed at the right ventricular apex. 10 volt pacing did not capture the diaphragm. The leads were secured to the pectoralis muscle and fascia. The leads were appropriately
attached to the device. The pocket was irrigated with antibiotic solution. The device and leads were placed in the pocket and the device was secured to pectoralis muscle and facia. The incision was closed with absorbable sutures. The estimated blood
loss was minimal. There were no complications. Device based testing was performed as described below. IV contrast total: 5 cc.
�
System Analysis:
RV lead: R: 6.0 mV; Threshold: 0.75 V @ 0.5 ms; Impedance: 608 ohms.
�
Final Programming: Tachy: VT/VF:188; Beka: VVI 40
�
Conclusion: Uncomplicated single-chamber ICD implant
�
Recommendation: Routine post ICD care.
�
cc: Dr. Anjel Regalado
�
[2024-04-15] MEDS: LIPITOR 40 MG PO (17:09)
--- NOTE | 2024-04-15 18:23 | PTCARENOTE ---
Pt received post ICD at 1600. Pt alert and oriented with no c/o of any pain. Left chest aquacell intact with no swelling.
[2024-04-15] MEDS: ANCEF 5 IV (21:02)
[2024-04-16] MEDS: TYLENOL 650 MG PO ×2 (02:07→08:57)
[2024-04-16 04:12] VITALS: BP 120/86
[2024-04-16 05:51] LABS: Hematocrit 40.4 % (37.0-47.0); Hemoglobin 14.2 g/dL (12.0-16.0); Mean Corp Hgb Conc. 35.1 g/dL (33.0-37.0); Mean Corpuscular Hgb 31.6 pg (27.0-31.0); Mean Platelet Volume 10.4 fL (7.4-10.4); Platelet Count 279 10^3/uL (130-400); Red Blood Cell Count 4.49 10^6/uL (4.20-5.40); Red Cell Dist. Width 11.7 % (11.5-14.5); White Blood Cell Count 12.4 10^3/uL (4.8-10.8)
[2024-04-16 06:12] LABS: Blood Urea Nitrogen 14 mg/dl (7-17); Calcium 9.9 mg/dl (8.4-10.2); Carbon Dioxide 23 mmol/L (22-30); Chloride 105 mmol/L (98-107); Estimated Creatinine Clearance 89 ml/min; Glucose 124 mg/dl (70-99); Magnesium 1.8 mg/dl (1.6-2.3); Potassium 4.6 mmol/L (3.5-5.1); Sodium 139 mmol/L (135-145); eGFR > 60.00
[2024-04-16] MEDS: ANCEF 5 IV (06:24)
[2024-04-16 07:08] VITALS: BP 130/86
[2024-04-16] MEDS: ASPIR LOW (ENTERIC COATED) 81 MG PO (08:57)
[2024-04-16] MEDS: FOLVITE 1 MG PO (08:57)
[2024-04-16] MEDS: COREG 3.125 MG PO (08:57)
--- NOTE | 2024-04-16 10:05 | W.PN.CARDCBS ---
Addendum entered and electronically signed by Niraj Jain MD 04/16/24 16:03:
I saw and examined the patient.
The PSYCHOLOGIST or PA's note was reviewed and I agree with the note.
Comment: General: Well developed, well nourished in NAD.
Stable cardiology status for discharge.
Follow-up arranged.
Discussed with patient in detail.
Original Note:
Today's Communication / Plan
-
s/p ICD
continue asa, statin, coreg. add low dose lisinopril
BMP/mag in 1 week
wound check with [facility] then follow up with Dr. Mckee
ok for DC today
Impression / Plan
-
[employer] Dr. Mckee ([place])
Cardiac surgeon Dr. Russell ([facility])
Impression:
Ventricular tachycardia/ventricular flutter status with hypotension status post shock by EMS
Negative trop x1
Subtotal occlusion of small caliber circ by cath 04/13/24, medical mgmt
Ischemic Cardiomyopathy, EF 40% by echo 04/13/24
PVCs
Mitral valve repair [facility] 2022
Alcohol use disorder
Recent tobacco cessation using Nicorette gum
Abnormal EKG with Q waves inferiorly
Echo 07/02/23 at OSH: EF 55 to 60%, annuloplasty ring in mitral position with trace MR and mean gradient 2 mmHg
ECHO 04/13/24: EF 40%, basal inferior, basal inferoseptum, high lateral, inferolateral mid and basal lee are hypokinetic, status post mitral valve repair with peak/mean gradient 7/4 mmHg, trace MR, no AR, trace TR, PAP 20 to 25 mmHg
Plan:
-patient presented with lightheadedness, noted to be in VT/VF with hypotension and was shocked by EMS in field
-s/p cardiac cath 04/13 with subtotal occlusion of small caliber circ. plan for medical mgmt
-presumably arrhythmia scar based
-underwent ICD placement 04/15/24. in SR on review of tele overnight, occasional PVCs.
-mag 1.8, replete
-L chest site with dressing c/d/i
-CXR without PTX or acute process
-continue asa, statin
-echo with EF 40%, new upon comparing prior echo report from OSH. continue coreg. will add low dose lisinopril. consider addition of SGLT2 inhibitor and aldactone as OP, presently hypotension limiting
-discussed etoh/tobacco cessation
-wrote work note at patient request
-Reviewed activity restrictions/limitations with patient
-OP follow up with [facility] for wound check then with Dr. Mckee
-ok for DC to home today
-BMP/mag in 1 week
-d/w nursing, hospitalist
PREADMIT DATA:
Patient was feeling dizzy and lightheaded with prior history of mitral valve repair approximately 1 year ago at [facility] no history of coronary artery disease by report. Patient in EMS had rapid ventricular tachycardia/ventricular
flutter at about 250 bpm and given hypotension and symptoms were shocked by EMS to sinus rhythm. EKG with multiform PVCs. No further arrhythmias. Received amiodarone. Receiving magnesium. Troponin negative. Electrolytes without abnormality.
Alcohol use disorder noted.
Progress Note - [employer]
Subjective
Date of Service: April 16, 2024
No issues overnight. eager for DC
Objective
Labs:
04/16/24 05:35
04/16/24 05:35
Labs
Hgb 14.2 g/dL (12.0-16.0) 04/16/24 05:35
Hct 40.4 % (37.0-47.0) 04/16/24 05:35
Plt Count 279 10^3/uL (130-400) 04/16/24 05:35
PT 12.9 Sec (11.4-14.6) 04/13/24 12:09
INR 0.97 04/13/24 12:09
APTT Cancelled 04/13/24 21:11
Sodium 139 mmol/L (135-145) 04/16/24 05:35
Potassium 4.6 mmol/L (3.5-5.1) 04/16/24 05:35
BUN 14 mg/dl (7-17) 04/16/24 05:35
Creatinine 0.6 mg/dL (0.6-1.0) 04/16/24 05:35
Glucose 124 mg/dl (70-99) H 04/16/24 05:35
Troponins
04/13/24 04/13/24 04/13/24
12:09 17:11 18:30
Troponin I < 0.012 Cancelled Cancelled
04/13/24 04/14/24 04/14/24
21:11 00:30 06:30
Troponin I Cancelled Cancelled Cancelled
04/14/24
12:30
Troponin I Cancelled
Vital Signs and I&O:
Vital Signs
Temp Pulse Resp BP Pulse Ox
98.0 F 82 18 130/86 99
04/16/24 07:12 04/16/24 09:45 04/16/24 07:12 04/16/24 08:57 04/16/24 07:12
Vital Signs
Temp Pulse Resp BP Pulse Ox
98.0 F 82 18 130/86 99
04/16/24 07:12 04/16/24 09:45 04/16/24 07:12 04/16/24 08:57 04/16/24 07:12
Intake & Output
04/14/24 04/15/24 04/16/24 04/17/24
07:59 07:59 07:59 07:59
Intake Total 1640 / 1640
Balance 1640 / 1640
Physical Exam
Physical Exam
GEN: No distress, awake, alert, oriented x3
HEENT: supple, anicteric, mmm, EOMI
LUNGS: CTA bilaterally, no wheezes/rales
CV: Reg, S1/S2, no murmur
ABD: soft, BS+, NT/ND
EXT: No cyanosis, clubbing, edema
NEURO: Gross non-focal
SKIN: Warm, pink, dry. No rash. L chest site with dressing c/d/i. R wrist site with mild soreness, ecchymoses
[2024-04-16] MEDS: MAGNESIUM OXIDE 500 MG PO (10:44)
[2024-04-16] MEDS: ZESTRIL 2.5 MG PO (10:44)
[2024-04-16 11:22] VITALS: BP 105/78
--- NOTE | 2024-04-16 12:12 | PTCARENOTE ---
Received patient at shift change. SR on the monitor. R chest dressing CDI with no evidence of a hematoma. Pt complains of 3/ lower back pain, PRN Tylenol administered per OCT. Pain reassessed as a 09/20. Patient hopeful for discharge today.
--- NOTE | 2024-04-16 13:10 | W.PN.HOSP.TC ---
Addendum entered and electronically signed by Crispin Turcios MD 04/16/24 16:26:
I saw and evaluated the patient. I reviewed the resident�s note and agree with findings and plan as documented in the resident�s note.
Patient is post ICD placement. No complication overnight.
Cardiology cleared for discharge on aspirin/statin/Coreg/small dose lisinopril
Patient to follow-up with [facility] cardiology in 1 week for dressing check
Discharge home
Original Note:
Today's Communication/Plan
-
Discharge patient home
Assessment / Plan
Assessment / Plan
IMPRESSION:
58-year-old female with a bout of ventricular tachycardia requiring defibrillation
PLAN:
#Presyncope
#Ischemic cardiomyopathy
Etiology of presyncope unknown, it is presumed secondary to ischemic cardiomyopathy
Patient has history of mitral valve repair at [facility] 2022
Cardiology saw and evaluated the patient in the emergency department,
EKG in emergency department demonstrates sinus rhythm with possible small Q waves in the inferior leads
Status post echocardiogram demonstrating EF 40%
Echocardiogram demonstrated inferior wall motion abnormality
Status post cardiac catheterization, no PCI target was found
Continue patient on heparin drip
Continue GDMT with aspirin 81, statin, Coreg-cardio looking into SGLT2 inhibitor affordability
Status post implantable cardiac defibrillator placement
Patient feels well
IVU and monitor on telemetry
#Ventricular tachycardia
Patient had 1 recorded episode of ventricular tachycardia by EMS, 250 bpm, systolics in the 90s
Patient required defibrillation in ambulance en route to the emergency department
Status post implantable cardiac defibrillator
Continue to monitor on telemetry in the IVU
Monitor with daily CMP
#Alcohol abuse with or without dependence
No alcohol withdrawal symptoms, will continue patient on MSAS protocol
Patient reports drinking 5 drinks per day, more this weekend
Patient will be placed on alcohol withdrawal protocol
IV thiamine and folate repletion
Check magnesium and phosphorus
#Mitral valve repair
Patient has a history of mitral valve repair at [place]
Echocardiogram demonstrated EF 40%
Diet: Cholesterol-lowering
CODE STATUS: Full code
DVT prophylaxis: Heparin drip
Anticipated Discharge: Today
Subjective/Interval History
-
Date of Service: April 16, 2024
No acute events overnight, patient feels well this morning
Objective Data
-
Labs:
Laboratory Results
04/16/24
05:35
WBC 12.4 H
Hgb 14.2
Hct 40.4
Plt Count 279
Sodium 139
Potassium 4.6
Chloride 105
Carbon Dioxide 23
BUN 14
Creatinine 0.6
Glucose 124 H
Calcium 9.9
Vital Signs:
Vital Signs
Temp Pulse Resp BP Pulse Ox
98.5 F 80 18 105/78 98
04/16/24 11:21 04/16/24 12:30 04/16/24 11:21 04/16/24 11:22 04/16/24 11:21
I&O
04/15/24 04/16/24 04/17/24
06:59 06:59 06:59
Intake Total 1640 / 1640
Balance 1640 / 1640
Review of Systems
-
Constitutional: Reports No Symptoms
Respiratory: Reports No Symptoms
Cardiac: Reports No Symptoms
Abdomen/GI: Reports No Symptoms
Physical Exam
-
General: Well Developed, Well Nourished, No Apparent Distress and Conversant
Respiratory: Clear to Auscultation
Cardiac: Regular Rhythm, S1/S2 and Other (Tenderness at site of ICD implantation, no erythema)
GI: Soft, Nontender, Nondistended and Normal Bowel Sounds
Musculoskeletal: No Edema
Skin: Warm and Dry
Neuro: Awake, Alert, Oriented and AO x 3
Psych: Calm and Intact Judgement/Insight
Data Reviewed
-
Labs: Labs Reviewed by me and Discussed with Physician
--- NOTE | 2024-04-16 13:34 | PTCARENOTE ---
Discharge ordered for patient. Reviewed discharge instructions, medications, and activity restrictions with pt. Pt verbalizes understanding. Pt discharged home with sister and niece.
--- NOTE | 2024-04-16 15:09 | W.DCSUMMARY ---
Addendum entered and electronically signed by Crispin Turcios MD 04/16/24 16:26:
Read, reviewed, and agree. See same day progress note for additional details. Time spent coordinating care, DC planning, review of DC plan of care with resident, transition of care, review of records in EMR, med rec, consults, notes, d/w
consultants, nursing, family, and CM mins
Original Note:
Documented by User: Dar Vuong DO, Resident 04/16/24 15:20
Discharge Summary
Discharge Data
Date of Admission: 04/13/24
Date of Discharge: 04/16/24
-
Pending Results: No
Hospital Course
Discharging Physician : Tam Vuong
Disposition : Home
Primary care physician : Dr. Villanueva
Principal Discharge diagnosis : Ventricular tachycardia
Chronic Discharge diagnosis : Presyncope, alcohol abuse with or without dependence, mitral valve repair, NSTEMI
Hospital Course : 58-year-old female with past medical history of mitral valve repair presenting from work. Patient states she was having a bowel movement and began to feel funny she began sweating feeling lightheaded and dizzy. Patient was picked
up by EMS and it was noted on a rhythm strip that she was having a bout of ventricular tachycardia 250 bpm. Patient's blood pressure dropped to the 90s she was awake and speaking. EMS then defibrillated the patient while awake. In the emergency
department patient was in sinus rhythm, cardiology was consulted and saw the patient in the emergency department. Cardiology decided to take the patient for a cardiac catheterization that night. Patient was started on a heparin drip, MSAS protocol
and admitted to IVU for telemetry and further workup. During her catheterization no PCI target was alluded. After PCI cardiology decided to take patient for implantable cardiac defibrillator. Patient successfully received her ICD on her second
day of admission. Patient was kept overnight to monitor for side effects after her procedure, patient had no side effects and was discharged to home with outpatient cardiology follow-up. Patient had no alcohol withdrawal symptoms during her stay.
Patient was initiated on high-dose statin, carvedilol, lisinopril and aspirin 81 mg. Patient will continue these medications and will follow-up with cardiology and her primary care physician for further medical management. Patient was discharged
home.
Important imaging findings :
04/13/2024 chest x-ray, Impression:
No evidence of active cardiopulmonary disease.
04/15/2024, chest x-ray impression:
Single lead left-sided ICD has been placed, the distal tip of the lead overlying the region of the right ventricle. No pneumothorax.
No acute cardiopulmonary process.
Procedure findings : 04/13/2024 cardiac catheterization, impression:
1. Mid left circumflex artery, which is small in caliber, appears to have a sub-total occlusion with robust right to left collaterals however the vessel is too small in caliber and not a PCI target.
2. Normal LVEDP at 11 mmHg.
04/15/2024 implantable cardiac defibrillator placement
Discharge Plan
-
Patient Disposition: Home (Routine Discharge)
Discharge Diagnosis/Procedures: VT, Cardiac cath 04/13, ICD implant 04/15
Condition: Fair
Diet: Low Cholesterol
Activity: As tolerated
Driving Restrictions: no driving for 6 weeks
Bathing Restrictions: OK to Shower
Stand Alone Forms: DC Instructions- Cath/EP Lab, DC Inst - Implanted Device
Referrals:
[facility] [Provider Group] - 04/26/24 2:00 pm (Incision check appointment)
Virginia Villanueva MD [Family Provider] - in less than 1 week
Ronda Mckee MD [Non-Admitting Privileges] - in one week
Prescriptions:
New
atorvastatin 40 mg Tablet
40 mg PO QPM Qty: 30 2RF
carvedilol 3.125 mg Tablet
3.125 mg PO BID Qty: 60 2RF
lisinopril 2.5 mg Tablet
2.5 mg PO DAILY Qty: 30 2RF
Continued
therapeutic multivitamin Tablet
1 tab PO DAILY
aspirin 81 mg Tablet,Delayed Release (Dr/Ec)
81 mg PO DAILY
Discharge Orders:
Discharge Patient (As Directed); Ordered 04/16/24
Ordered By: Crispin Turcios
Care Plan Goals
Care Plan Goals:
Problem: Readiness for enhanced knowledge related to diagnosis and treatment plan
Goal: Understand your diagnosis and treatment plan needs, including medications if applicable.
Instructions: Know your diagnosis, underlying causes and treatment plan options, including medications if applicable. Consult with your health care team to learn about your diagnosis and treatment plan, including medications if applicable.
Discharge Date and Time
Discharge Date/Time: 04/16/24 13:33
Print Language: NICARAGUAN

Documented by User: Crispin Turcios MD 04/16/24 16:25
Discharge Summary
Discharge Data
Date of Admission: 04/13/24
Date of Discharge: 04/16/24
Discharge Plan
-
Patient Disposition: Home (Routine Discharge)
Discharge Diagnosis/Procedures: VT, Cardiac cath 04/13, ICD implant 04/15
Condition: Fair
Diet: Low Cholesterol
Activity: As tolerated
Driving Restrictions: no driving for 6 weeks
Bathing Restrictions: OK to Shower
Stand Alone Forms: DC Instructions- Cath/EP Lab, DC Inst - Implanted Device
Referrals:
[facility] [Provider Group] - 04/26/24 2:00 pm (Incision check appointment)
Virginia Villanueva MD [Family Provider] - in less than 1 week
Ronda Mckee MD [Non-Admitting Privileges] - in one week
Prescriptions:
New
atorvastatin 40 mg Tablet
40 mg PO QPM Qty: 30 2RF
carvedilol 3.125 mg Tablet
3.125 mg PO BID Qty: 60 2RF
lisinopril 2.5 mg Tablet
2.5 mg PO DAILY Qty: 30 2RF
Continued
therapeutic multivitamin Tablet
1 tab PO DAILY
aspirin 81 mg Tablet,Delayed Release (Dr/Ec)
81 mg PO DAILY
Discharge Orders:
Discharge Patient (As Directed); Ordered 04/16/24
Ordered By: Crispin Turcios
Care Plan Goals
Care Plan Goals:
Problem: Readiness for enhanced knowledge related to diagnosis and treatment plan
Goal: Understand your diagnosis and treatment plan needs, including medications if applicable.
Instructions: Know your diagnosis, underlying causes and treatment plan options, including medications if applicable. Consult with your health care team to learn about your diagnosis and treatment plan, including medications if applicable.
Discharge Date and Time
Discharge Date/Time: 04/16/24 13:33
Print Language: NICARAGUAN
== END 2024-04-16 13:33 | disposition home or self-care (01) | DRG 275 ==
LOC: IVU 15:06
PROVIDERS: Internal Medicine Cardiovascular Disease; Internal Medicine Interventional Cardiology; Nurse Practitioner Adult Health; Physician Assistant; ADMITTING PHYSICIAN Hospitalist; CONSULT PHYSICIAN Internal Medicine Cardiovascular Disease; EMERGENCY PHYSICIAN Emergency Medicine; FAMILY PHYSICIAN Family Medicine
PROC: 4A023N7 Measurement of Cardiac Sampling and Pressure, Left Heart, Percutaneous Approach (ICD-10-PCS; 2024-04-13)
PROC: B2151ZZ Fluoroscopy of Left Heart using Low Osmolar Contrast (ICD-10-PCS; 2024-04-13)
PROC: B2111ZZ Fluoroscopy of Multiple Coronary Arteries using Low Osmolar Contrast (ICD-10-PCS; 2024-04-13)
PROC: 0JH608Z Insertion of Defibrillator Generator into Chest Subcutaneous Tissue and Fascia, Open Approach (ICD-10-PCS; 2024-04-15)
PROC: 02HK3KZ Insertion of Defibrillator Lead into Right Ventricle, Percutaneous Approach (ICD-10-PCS; 2024-04-15)
DX: I47.20 Ventricular tachycardia, unspecified (principal); I21.4 Non-ST elevation (NSTEMI) myocardial infarction; I49.02 Ventricular flutter; I25.5 Ischemic cardiomyopathy; I49.01 Ventricular fibrillation; F10.10 Alcohol abuse, uncomplicated; Z79.82 Long term (current) use of aspirin; Z82.49 Family history of ischemic heart disease and other diseases of the circulatory system; Z87.891 Personal history of nicotine dependence
CPT/HCPCS: 33249; 71045; 80048; 80053; 80061; 80306; 82010; 82077; 82977; 83036; 83735; 84100; 84439; 84443; 84484; 85025; 85027; 85610; 85730; 93005; 93306; 93458; 96365; 96367; 96375; 99152; 99291; C1722; C1777; C1892; C1894; Q9967

== ENCOUNTER → 2024-07-14 12:40 | Outpatient (REF) | payer OTHER, SELFPAY | LOC: HWRCS 12:40 | PROVIDERS: ATTENDING PHYSICIAN Nurse Practitioner; FAMILY PHYSICIAN Family Medicine | DX: I25.5 Ischemic cardiomyopathy (principal) | CPT/HCPCS: 93306 ==

== ENCOUNTER → 2025-02-24 13:02 | Outpatient (REF) | payer OTHER, SELFPAY | LOC: HWRCS 13:02 | PROVIDERS: ATTENDING PHYSICIAN Internal Medicine Cardiovascular Disease; FAMILY PHYSICIAN Family Medicine | DX: I25.10 Atherosclerotic heart disease of native coronary artery without angina pectoris (principal); I25.5 Ischemic cardiomyopathy | CPT/HCPCS: 93306 ==